=== PATIENT | female | born 1960 | race Caucasian/White ===

== ENCOUNTER → 2016-09-10 | Emergency (ER) | payer MEDICARE, MEDICAID ==
[~2016-09-10] VITALS: Wt 90.7 kg
[~2016-09-10] MED LIST: ABILIFY1 MG/ML PO; ABILIFY10 MG PO; AMBIEN5 MG PO; ANTIVERT/2525 M1 PO; B12,B-12,B 12500 MC1 PO; BACTRIM DS 8001 TA1 PO; CIPRO500 MG PO; CLONIDINE HCL0.1 MG PO; HYDROCODONE BIT1 T11 PO; KLONOPIN0.5 MG PO; LIDEX 0.05% CRE15 GM T; MACRODANTIN100 M1 PO; MOTRIN600 MG PO; PREDNISONE20 M1 PO; PROZAC40 MG PO; PYRIDIUM200 M1 PO; SEROQUEL25 MG PO; TRICOR48 MG PO; ULTRAM50 MG PO; WELLBUTRIN XL150 MG PO; ZETIA10 MG PO; ZOCOR40 MG PO; ZOCOR5 MG PO; ZOCOR80 MG PO; ZOFRAN ODT4 MG SL
== END ==
LOC: ED 11:30
DX: K59.00 Constipation, unspecified (principal); F17.200 Nicotine dependence, unspecified, uncomplicated; Z91.041 Radiographic dye allergy status

== ENCOUNTER 2016-12-03 21:42 | Emergency (ER) | payer MEDICARE, MEDICAID ==
[~2016-12-03] VITALS: Ht 167.6 cm; Wt 90.7 kg
[2016-12-03 22:50] LABS: BASO # 0.1 10*3/uL (0.0-0.1); BASO % 0.7 % (0.0-1.0); EOS # 0.1 10*3/uL (0.0-0.4); EOS % 1.3 % (1.0-4.0); HEMOGLOBIN 13.1 g/dl (12.0-16.0); LYMPH # 3.3 10*3/uL (1.3-4.4); LYMPH % 48.9 % (27.0-41.0); MEAN CELL VOLUME 86.4 fl (81.0-99.0); MEAN CORPUSCULAR HGB 28.3 pg (27.0-31.0); MEAN CORPUSCULAR HGB CONC 32.8 g/dl (33.0-37.0); MEAN PLATELET VOLUME 10.5 fl (9.6-12.3); MONO # 0.4 10*3/uL (0.1-1.0); NEUT # 2.9 10*3/uL (2.3-7.9); NEUT % 42.8 % (47.0-73.0); PLATELET COUNT AUTOMATED 228 10*3/uL (130-400); RED BLOOD COUNT 4.63 10*6/uL (4.10-5.10); RED CELL DISTRI WIDTH 12.9 % (0-14.5); WHITE BLOOD COUNT 6.8 10*3/uL (4.8-10.8)
[2016-12-03 23:00] LABS: PROTHROMBIN TIME 10.7 SECONDS (9.0-12.4)
[2016-12-03 23:10] LABS: ALBUMIN 3.5 gm/dl (3.1-4.5); ALKALINE PHOSPHATASE 82 U/L (45-117); BILIRUBIN, TOTAL 0.2 mg/dl (0.2-1.0); BUN 14 mg/dl (7-24); C-REACTIVE PROTEIN 0.44 MG/DL (0-0.3); CARBON DIOXIDE 28 mmol/L (21-32); CHLORIDE 107 mmol/L (98-107); EST GLOM FILT AFRICAN AMERICAN > 60 ml/min; GLUCOSE 102 mg/dL (65-99); MAGNESIUM 2.2 mg/dL (1.5-2.1); POTASSIUM 3.9 mmol/L (3.5-5.1); SGOT/AST 19 IU/L (3-35); SGPT/ALT 24 U/L (12-78); SODIUM 143 mmol/L (136-145); TOTAL PROTEIN 6.9 gm/dL (6.4-8.2)
[2016-12-04] MEDS ORDERED: PEPCID20 MG PO (00:40)
[2016-12-04] MEDS ORDERED: ZOFRAN ODT4 MG SL (00:40)
== END 2016-12-04 01:07 | disposition home or self-care (01) ==
LOC: ED 21:42
PROVIDERS: Emergency Medicine Emergency Medical Services
DX: K29.00 Acute gastritis without bleeding (principal); E78.5 Hyperlipidemia, unspecified; F17.200 Nicotine dependence, unspecified, uncomplicated; Z91.041 Radiographic dye allergy status; Z79.899 Other long term (current) drug therapy

== ENCOUNTER 2017-04-08 09:13 | Emergency (ER) | payer MEDICARE, MEDICAID ==
[~2017-04-08] VITALS: Ht 167.6 cm; Wt 90.7 kg
[~2017-04-08 09:13] MED LIST changes: +PEPCID20 MG PO
[2017-04-08] MEDS ORDERED: PROAIR HFA8.5 GM INH (10:46)
[2017-04-08] MEDS ORDERED: MEDROL DOSEPAK4 MG PO (10:46)
[2017-04-08] MEDS ORDERED: BROMFED DM COU118 M2 PO (10:46)
== END 2017-04-08 11:00 | disposition home or self-care (01) ==
LOC: ED 09:13
DX: J40 Bronchitis, not specified as acute or chronic (principal); F17.200 Nicotine dependence, unspecified, uncomplicated; Z98.51 Tubal ligation status; Z79.899 Other long term (current) drug therapy; Z91.041 Radiographic dye allergy status

== ENCOUNTER 2017-10-04 08:38 | Inpatient (IN) | payer MEDICARE, MEDICAID ==
[~2017-10-04] VITALS: Ht 168 cm; Wt 90.0 kg
[2017-10-04] VITALS (9 sets, daily range): BP systolic 84–109; BP diastolic 50–63
--- NOTE | ~2017-10-04 | PR ---
[place], [place] PROGRESS NOTE NAME: SHERIF JOSUE UNIT #: [id number] ROOM: 521 DOCTOR: FARZANEH BOWDEN MD BIRTHDATE: [birth year] DOS: 10/10/2017 PULMONARY PROGRESS NOTE SUBJECTIVE: She has been comfortably resting. Coughing has been improving gradually, but not completely resolved. The patient denies symptoms of chest pain or any hemoptysis. The wheezing has been improved significantly. There were no symptoms of abdominal pain. PHYSICAL EXAMINATION: VITAL SIGNS: The vital signs for the patient, which was recorded shows the temperature of the patient noted as normal, respiratory rate 20, heart rate 55-59, blood pressure 131/64-150/85. The pulse oxygen saturation on room air is 93% saturation. HEENT: Examination shows head was atraumatic. Eyes nonicterus. NECK: Supple. CARDIOVASCULAR: S1, S2 is audible. LUNGS: The patient was noted without any crackles. There was no wheezing. ABDOMEN: Soft and nontender. EXTREMITIES: Without any acute edema. LABORATORY DATA: CBC noted normal today. Culture of the sputum, the patient noted with light growth of Staph aureus, which were noted methicillin-sensitive species. Chest x-ray of the patient that was done this morning was reviewed shows improvement in the pulmonary infiltration. CT scan of the chest, which was done without contrast, the patient refused to have a prep done and count was given does not show any significant lymphadenopathy; however, the mediastinal images reviewed for the patient will be limited to lower lobe areas of infiltration with some atelectasis and interstitial changes in the right upper lobe. IMPRESSION: 1. The patient with resolving acute pneumonia, post-acute influenza pneumonia ____ Staphylococcus aureus pneumonia with methicillin-sensitive species. 2. Resolving acute exacerbation of bronchial asthma as well. PLAN OF TREATMENT: Based on the current assessment of the patient, the patient could be discharged home on oral antibiotics and bronchodilators. Tobacco cessation was addressed. Outpatient followup could be done if the patient wishes to do so. [place], [place] PROGRESS NOTE NAME: SHERIF JOSUE UNIT #: [id number] ROOM: 521 DOCTOR: FARZANEH BOWDEN MD BIRTHDATE: [birth year] FARZANEH LOGAN MD CM:PNTRANS [id number] FARZANEH KINNEY MD 10/11/17 012 interface
--- NOTE | ~2017-10-04 | CON ---
[place], [place] REPORT OF CONSULTATION NAME: SHERIF JOSUE UNIT #: [id number] ROOM: 521 DOCTOR: DESMOND KINNEY MD,FARZANEH BIRTHDATE: [birth year] DOS: 10/08/2017 The patient was noted at this time NOTE: DICTATION ENDS HERE. FARZANEH LOGAN MD CM:CONSTR:REPORT OF CONSULTATION 1255 10/09/17 0218 interface
--- NOTE | ~2017-10-04 | CON ---
[place], [place] RE[facility] OF [facility]ATION [id number] UNIT #: [id number] ROOM: 521 DOCTOR: FARZANEH BOWDEN MD BIRTHDATE: [birth year] DOS: 10/08/2017 PULMONARY CONSULTATION, EVALUATION AND MANAGEMENT CONSULTATION REQUESTED BY: Hospitalist services. REASON FOR CONSULTATION: For assessment of the current acute pneumonia and other abnormal respiratory symptoms. HISTORY OF PRESENT ILLNESS: This is a 57-year-old white female patient who came into the Emergency Room and hospitalized on 10/04/2017. She has been admitted under care of the hospitalist services since then. The patient's original symptom was described as flu-like symptoms occurring at home with nausea, vomiting and diarrhea, muscle aches. She was also reported with symptoms of fever and chills. She has been hospitalized. She has been treated for the acute pneumonia as well that was noted in chest x-ray. She has not been noted with symptoms of hemoptysis. Yesterday, the patient developed increased symptoms of shortness of breath with temperature elevation 103 degree Fahrenheit and increased wheezing. She was transferred and admitted to the Intensive Care Unit. She has been noted this morning in the Intensive Care Unit and stated reduction of respiratory symptoms. The Tylenol was given to the patient resulting in improvement in the temperature. She has been getting intravenous antibiotics as well for the coverage of acute bacterial pneumonia. REVIEW OF SYSTEMS: CONSTITUTIONAL SYMPTOMS: She was still noted with symptoms of fatigue and malaise. Denies any symptoms of chills. The patient does have fever, which has been noted 103 degree Fahrenheit. EYES: Denies any burning, redness, tenderness, discharge or dryness. EARS, NOSE AND THROAT SYMPTOMS: Denies sore throat, hoarseness, otalgia, postnasal drainage. CARDIOVASCULAR: Denies angina pain, edema, pain of the lower extremities or palpitation. GASTROINTESTINAL SYMPTOMS: Noted with symptoms of nausea, vomiting, diarrhea, all seemed to be improving progressively. GENITOURINARY SYMPTOMS: No dysuria, suprapubic pain, hematuria. MUSCULOSKELETAL SYMPTOMS: Denies any acute redness or tenderness. CENTRAL NERVOUS SYSTEM: Denies dizziness, headache, diplopia, syncopal episode, tingling sensation of the extremities. Remaining systems were reviewed. They were noted all negative. PAST MEDICAL HISTORY: Known for this patient as: 1. Chronic nicotine abuse. 2. General anxiety disorder and depression. 3. Hyperlipidemia. 4. Intervertebral disk disease. PAST SURGICAL HISTORY: Reported as tubal ligation. [place], [place] REPORT OF CONSULTATION NAME: SHERIF JOSUE UNIT #: [id number] ROOM: 521 DOCTOR: MIKE BOWDEN MDM BIRTHDATE: [birth year] SOCIAL HISTORY: The patient stated she is , has 2 children, lives at home. History of tobacco use noted since early teens a pack of cigarettes per day, actively smoked by the patient until hospitalization. Denies any history of illicit drug use. There was no exposure to chemicals, dust or other inhalation noted previously. FAMILY HISTORY: The patient's father at age 60-year-old due to complication of alcoholism with coronary artery disease. Mother was known with history of chronic alcohol dependence as well as coronary artery disease. HOME MEDICATIONS: Listed use of Abilify, Klonopin, famotidine, Prozac, Zofran, Seroquel, and simvastatin. ALLERGIES: IODINATED CONTRAST. PHYSICAL EXAMINATION: GENERAL: This is a 57-year-old female patient who has been currently noted comfortable at this time, sitting on the bed without any acute distress this morning of assessment. Height of 5 feet 6 inches, weight 199 pounds, BMI 31.8. VITAL SIGNS: The temperature noted 103.6 degree Fahrenheit, rectal temperature later noted, the patient is afebrile. Temperature on admission was noted as normal, later 101 degree Fahrenheit. The respiratory rate ranging between 18-24, heart rate ranging between 68-75. The blood pressure 101/60-125/72. Pulse oxygen saturation noted as 3 liter nasal cannula is 98% saturation and admission oxygen saturation on room air was 98% saturation. HEENT: Shows head was atraumatic. Eyes nonicterus. Mild to moderate obesity. NECK: Supple. Oral mucosa was moist. CARDIOVASCULAR: S1, S2 is audible. LUNGS: Noted with decreased breath sounds, scattered crackles in the lungs bilaterally. The expiratory wheezing noted scattered in the lungs bilaterally. ABDOMEN: Soft. Mild to moderate obesity without tenderness. Bowel sounds present. EXTREMITIES: Noted without any edema, clubbing, cyanosis. CENTRAL NERVOUS SYSTEM: Cranial nerves 2-12 intact. MUSCULOSKELETAL: Without any acute deformities. SKIN: No lesions or rashes. LABORATORY DATA: CBC noted as normal CBC for this patient on admission of of this month. of this month admission CMP; BUN normal, creatinine was normal. AST 117, ALT 104. Lactic acid was 2.2, subsequent lactic acid 1.1. CBC on ; WBC count 3.8, hemoglobin 10.8, hematocrit 33.6, platelet count normal. D-dimer on the was noted as mildly elevated 1.12. The blood culture taken in the Emergency Room on of this month showed no bacterial growth. Rapid influenza A and B, nasal washing antigens that was done yesterday was noted positive for influenza A. CMP that was done this morning; normal BUN and creatinine, glucose 157 and potassium 3.4. The liver function tests noted marked improvement. CBC this morning; WBC count 4.5, hemoglobin 10.6, hematocrit 30.4, platelet count 150,000, 89% segmented neutrophils. Review of the radiology data was performed. The patient had CT scan of the abdomen and pelvis, which was done on admission for the assessment of symptoms of nausea and [place], [place] REPORT OF CONSULTATION NAME: SHERIF JOSUE UNIT #: [id number] ROOM: 521 DOCTOR: FILIBERTO BOWDEN MDULAM BIRTHDATE: [birth year] vomiting reported and the radiologist report as finding of a small area of basilar atelectasis, no gross abdominal pelvic pathologies was described. Some irregular foci in the right lobe of the liver was described as a cyst. Nonemergent MRI of the abdomen was suggested. Chest x-ray does not show any acute abnormality, which was done on 10/06/2017, which was reviewed. The chest x-ray that was done yesterday was also reviewed shows evidence of prominent pulmonary hilar area, which was also noted on the first chest x-ray with area appear like acute infiltration developed as compared with previous chest x-ray, comparison of of this month. IMPRESSION: 1. The patient who has been currently admitted to the hospital noted with positive influenza A infection, viral syndrome with abdominal problem, currently admitted to the hospital at the present time noted with acute exacerbation of chronic obstructive pulmonary disease and bronchial asthma, which were developed in the last 24 hours with worsening of symptoms. 2. Acute pneumonia and infiltration in the left lower lobe suggested possibility of superimposed bacterial infection with a viral syndrome after influenza infection. 3. The patient with prominent pulmonary hilar area still noted in both the chest x-ray, not noted in the previous chest x-ray that has been assessed of 2017. Rule out adenopathy in the hilar area. There was no clinical suspicion of pulmonary embolism, pulmonary embolus was excluded with low probability in the V/Q scan, ultrasound of the lower extremity that was completed of of this month on this admission. 4. History of chronic nicotine dependence as well. 5. Mild hyperglycemia related to use of corticosteroids. 6. Abnormal liver function tests secondary to the acute infection. 7. Leukopenia secondary to acute viral illness. PLAN OF MANAGEMENT: At this time, the patient has been receiving the Tamiflu as well as the bronchodilators. She was started on Solu-Medrol 40 mg q.8 hours yesterday resulting in reduction in the wheezing. She has been getting broad-spectrum intravenous antibiotics as Zosyn, vancomycin and Levaquin at this time that will be monitored until the new culture results will be available. CT scan of the chest will be done intravenously after the prep to be done for this patient maybe in the next couple of days to reassess. Chest x-ray was done for the patient this morning portable view, which was pending. Continuation of bronchodilators every 4 hours. Nicotine replacement patches to overcome any nicotine withdrawal could be used as well. Urine for legionella antigen, strep antigen will be obtained. Titrate oxygen supplementation if necessary to maintain pulse ox 92% or greater. Usual care, other supportive therapy, plan of management and care plan. Additional treatment changes to be made based on the progression of the illnesses. Thanks for allowing me to participate in the care of this patient. [place], [place] REPORT OF CONSULTATION NAME: SHERIF JOSUE UNIT #: [id number] ROOM: 521 DOCTOR: FARZANEH BOWDEN MD BIRTHDATE: [birth year] FARZANEH LOGAN MD CM:CONSTR:REPORT OF CONSULTATION 1308 10/09/17 0316 interface
--- NOTE | ~2017-10-04 | PR ---
[place], [place] PROGRESS NOTE NAME: SHERIF JOSUE UNIT #: [id number] ROOM: 521 DOCTOR: DESMOND KINNEY MD,FARZANEH BIRTHDATE: [birth year] DOS: 10/09/2017 SUBJECTIVE: The patient was noted comfortable at this time, still noted with a cough, shortness of breath has been improving. There were no symptoms of hemoptysis or any chest pain. The wheezing of the patient was decreasing gradually. General weakness and fatigue was improving. The fever that occurred for the patient was also noted to a gradually normal temperature. OBJECTIVE: VITAL SIGNS: The temperature noted as normal in the last 24 hours, respiratory rate of 20-24, heart rate 56-73, blood pressure 135/66-101/60. Pulse oxygen saturation on 2 liters nasal cannula is 94% saturation. HEENT: Head was atraumatic. Eyes nonicterus. NECK: Supple. CARDIOVASCULAR: S1, S2 audible. LUNGS: Still noted with crackles in the mid to lower portion of the lungs bilaterally. ABDOMEN: Soft, nontender. It was obese. EXTREMITIES: Without any acute edema. LABORATORY DATA: The culture of the sputum preliminarily shows light growth of gram-positive cocci, pending identification and sensitivities. IMPRESSION: 1. The patient has been noted with acute pneumonia, multilobar with a superimposed bacterial infection with possibility of Staph pneumonia, Staph aureus is very likely with influenza A infection. 2. Resolving acute respiratory failure symptoms as was the temperature curve. 3. She was also noted with acute exacerbation of bronchial asthma and/or chronic obstructive pulmonary disease, currently treated with the steroids, and progressive improvement was continued. PLAN OF TREATMENT: Continue current antibiotic without any changes. Obtain a chest x-ray, PA and lateral view in the morning. Monitor the results of the sputum culture to suggest any further antibiotic and discharge planning based on the culture results of the sputum and the chest x-ray assessment. Other supportive plan of therapy of the patient to be continued as previously without any changes. Continue antibiotic therapy as well. The patient's current ongoing assessment and management were discussed with Dr. Brian Hopper in detail. [place], [place] PROGRESS NOTE NAME: SHERIF JOSUE UNIT #: [id number] ROOM: 521 DOCTOR: FARZANEH BOWDEN MD BIRTHDATE: [birth year] FARZANEH LOGAN MD CM:PNTRANS [id number] FARZANEH KINNEY MD 10/10/17 0258 interface
[~2017-10-04 08:38] MED LIST changes: +BROMFED DM COU118 M2 PO; +MEDROL DOSEPAK4 MG PO; +PROAIR HFA8.5 GM INH
[2017-10-04 08:59] LABS: BASO % 0.5 % (0.0-1.0); EOS % 0.5 % (1.0-4.0); HEMOGLOBIN 13.1 g/dl (12.0-16.0); LYMPH # 0.6 10*3/uL (1.3-4.4); LYMPH % 7.8 % (27.0-41.0); MEAN CELL VOLUME 85.1 fl (81.0-99.0); MEAN CORPUSCULAR HGB 27.9 pg (27.0-31.0); MEAN CORPUSCULAR HGB CONC 32.8 g/dl (33.0-37.0); MEAN PLATELET VOLUME 10.3 fl (9.6-12.3); MONO # 0.5 10*3/uL (0.1-1.0); MONO % 6.5 % (3.0-9.0); NEUT # 6.5 10*3/uL (2.3-7.9); NEUT % 84.4 % (47.0-73.0); PLATELET COUNT AUTOMATED 212 10*3/uL (130-400); RED CELL DISTRI WIDTH 12.9 % (0-14.5); WHITE BLOOD COUNT 7.7 10*3/uL (4.8-10.8)
[2017-10-04 09:20] LABS: ALBUMIN 3.5 gm/dl (3.1-4.5); ALKALINE PHOSPHATASE 112 U/L (45-117); BUN 7 mg/dl (7-24); CHLORIDE 104 mmol/L (98-107); CREATININE 0.98 mg/dL (0.55-1.02); LIPASE 86 U/L (73-393); POTASSIUM 3.8 mmol/L (3.5-5.1); SGOT/AST 117 IU/L (3-35); SGPT/ALT 104 U/L (12-78); SODIUM 139 mmol/L (136-145); TOTAL PROTEIN 6.5 gm/dL (6.4-8.2)
[2017-10-04] MEDS ORDERED: Zofran4 MG SL (10:07)
[2017-10-04 11:01] LABS: BILIRUBIN NEGATIVE (NEGATIVE); BLOOD 1+ (NEGATIVE); CLARITY CLEAR (CLEAR); COLOR YELLOW (YELLOW); GLUCOSE NEGATIVE (NEGATIVE); KETONE NEGATIVE (NEGATIVE); LEUKO ESTERASE NEGATIVE (NEGATIVE); NITRITE NEGATIVE (NEGATIVE); PH 6.5 (5.0-9.0); UROBILINOGEN 0.2 E.U./dl (0.2-1.0)
[2017-10-04] MEDS ORDERED: ABILIFY10 MG PO (11:23)
[2017-10-05] VITALS: BP 100/62
[2017-10-05 06:26] LABS: BASO % 0.8 % (0.0-1.0); EOS % 0.5 % (1.0-4.0); LYMPH # 1.4 10*3/uL (1.3-4.4); LYMPH % 37.5 % (27.0-41.0); MEAN CELL VOLUME 86.6 fl (81.0-99.0); MEAN CORPUSCULAR HGB 27.8 pg (27.0-31.0); MEAN CORPUSCULAR HGB CONC 32.1 g/dl (33.0-37.0); MEAN PLATELET VOLUME 10.6 fl (9.6-12.3); MONO # 0.4 10*3/uL (0.1-1.0); MONO % 10.6 % (3.0-9.0); NEUT # 1.9 10*3/uL (2.3-7.9); NEUT % 50.3 % (47.0-73.0); PLATELET COUNT AUTOMATED 175 10*3/uL (130-400); RED BLOOD COUNT 3.88 10*6/uL (4.10-5.10); RED CELL DISTRI WIDTH 13.6 % (0-14.5); WHITE BLOOD COUNT 3.8 10*3/uL (4.8-10.8)
[2017-10-05 06:28] LABS: HEMATOCRIT 33.6 % (37.0-47.0); HEMOGLOBIN 10.8 g/dl (12.0-16.0)
[2017-10-05 06:56] LABS: ALBUMIN 2.8 gm/dl (3.1-4.5); BUN 7 mg/dl (7-24); CHLORIDE 110 mmol/L (98-107); CHOLESTEROL 243 mg/dL (<200); CREATININE 0.78 mg/dL (0.55-1.02); POTASSIUM 3.9 mmol/L (3.5-5.1); SGPT/ALT 97 U/L (12-78); SODIUM 142 mmol/L (136-145); TRIGLYCERIDES 234 mg/dl (<150); VLDL CHOLESTEROL 47 mg/dL (6-40)
[2017-10-05 07:02] LABS: ALKALINE PHOSPHATASE 91 U/L (45-117); FREE T4 0.76 ng/dl (0.76-1.46); HDL CHOLESTEROL 38 mg/dl (40-60); LDL CHOLESTEROL 158 mg/dL (9-159); SGOT/AST 77 IU/L (3-35); THYROID STIM HORMONE (HS) 0.855 uIU/ml (0.358-4.75)
[2017-10-05 07:52] LABS: VITAMIN D, 25-HYDROXY 16.4 ng/mL (30-100)
[2017-10-05 08:00] VITALS: BP 110/60
[2017-10-05 12:00] VITALS: BP 90/51
[2017-10-05 16:00] VITALS: BP 95/60
[2017-10-05 20:00] VITALS: BP 101/62
[2017-10-06] VITALS: BP 99/48
[2017-10-06 06:01] LABS: BUN 9 mg/dl (7-24); CHLORIDE 108 mmol/L (98-107); CREATININE 0.75 mg/dL (0.55-1.02); POTASSIUM 3.8 mmol/L (3.5-5.1); SODIUM 142 mmol/L (136-145)
[2017-10-06 06:28] LABS: BASO % 0.2 % (0.0-1.0); EOS % 0.2 % (1.0-4.0); HEMATOCRIT 33.3 % (37.0-47.0); HEMOGLOBIN 10.5 g/dl (12.0-16.0); LYMPH # 1.1 10*3/uL (1.3-4.4); LYMPH % 24.1 % (27.0-41.0); MEAN CELL VOLUME 88.6 fl (81.0-99.0); MEAN CORPUSCULAR HGB 27.9 pg (27.0-31.0); MEAN CORPUSCULAR HGB CONC 31.5 g/dl (33.0-37.0); MEAN PLATELET VOLUME 10.9 fl (9.6-12.3); MONO # 0.4 10*3/uL (0.1-1.0); NEUT # 2.9 10*3/uL (2.3-7.9); NEUT % 66.3 % (47.0-73.0); PLATELET COUNT AUTOMATED 162 10*3/uL (130-400); RED BLOOD COUNT 3.76 10*6/uL (4.10-5.10); RED CELL DISTRI WIDTH 13.8 % (0-14.5); WHITE BLOOD COUNT 4.4 10*3/uL (4.8-10.8)
[2017-10-06 08:00] VITALS: BP 74/50; BP 78/30
[2017-10-06 10:20] VITALS: BP 84/60
[2017-10-06 12:00] VITALS: BP 96/57
[2017-10-06 16:00] VITALS: BP 101/61
[2017-10-06 20:00] VITALS: BP 102/62
[2017-10-07] VITALS: BP 111/57
[2017-10-07 08:00] VITALS: BP 121/58
[2017-10-07 12:00] VITALS: BP 131/75
[2017-10-07 16:00] VITALS: BP 118/59
[2017-10-07 20:00] VITALS: BP 101/58
[2017-10-08] VITALS: BP 125/72
[2017-10-08 04:01] VITALS: BP 137/83
[2017-10-08 05:11] LABS: ALBUMIN 2.9 gm/dl (3.1-4.5); ALKALINE PHOSPHATASE 108 U/L (45-117); BUN 7 mg/dl (7-24); CHLORIDE 107 mmol/L (98-107); PHOSPHOROUS 3.5 mg/dL (2.5-4.9); POTASSIUM 3.4 mmol/L (3.5-5.1); SGOT/AST 36 IU/L (3-35); SGPT/ALT 61 U/L (12-78); SODIUM 143 mmol/L (136-145); TOTAL PROTEIN 6.6 gm/dL (6.4-8.2)
[2017-10-08 05:53] LABS: HEMATOCRIT 33.4 % (37.0-47.0); HEMOGLOBIN 10.6 g/dl (12.0-16.0); MEAN CELL VOLUME 87.7 fl (81.0-99.0); MEAN CORPUSCULAR HGB 27.8 pg (27.0-31.0); MEAN CORPUSCULAR HGB CONC 31.7 g/dl (33.0-37.0); MEAN PLATELET VOLUME 11.4 fl (9.6-12.3); PLATELET COUNT AUTOMATED 150 10*3/uL (130-400); RED BLOOD COUNT 3.81 10*6/uL (4.10-5.10); RED CELL DISTRI WIDTH 13.9 % (0-14.5); WHITE BLOOD COUNT 4.5 10*3/uL (4.8-10.8)
[2017-10-08 06:50] LABS: PLATELET SUFFICIENCY NORMAL (NORMAL); TOTAL CELLS COUNTED 100 #CELLS
[2017-10-08 08:00] VITALS: BP 117/59
[2017-10-08 12:00] VITALS: BP 101/60
[2017-10-08 16:00] VITALS: BP 104/54
[2017-10-08 20:04] VITALS: BP 126/54
[2017-10-09] VITALS: BP 135/66
[2017-10-09 12:00] VITALS: BP 107/58
[2017-10-09 16:00] VITALS: BP 134/76
[2017-10-09 20:00] VITALS: BP 132/73
[2017-10-10] VITALS: BP 150/85
[2017-10-10 07:16] LABS: HEMOGLOBIN 11.6 g/dl (12.0-16.0); MEAN CELL VOLUME 87.7 fl (81.0-99.0); MEAN CORPUSCULAR HGB 27.5 pg (27.0-31.0); MEAN CORPUSCULAR HGB CONC 31.4 g/dl (33.0-37.0); MEAN PLATELET VOLUME 11.2 fl (9.6-12.3); PLATELET COUNT AUTOMATED 207 10*3/uL (130-400); RED BLOOD COUNT 4.22 10*6/uL (4.10-5.10); RED CELL DISTRI WIDTH 13.9 % (0-14.5); WHITE BLOOD COUNT 7.1 10*3/uL (4.8-10.8)
[2017-10-10 07:24] LABS: BUN 8 mg/dl (7-24); CHLORIDE 106 mmol/L (98-107); CREATININE 0.69 mg/dL (0.55-1.02); POTASSIUM 3.7 mmol/L (3.5-5.1); SODIUM 143 mmol/L (136-145)
[2017-10-10 08:00] VITALS: BP 131/64
[2017-10-10 08:14] LABS: PLATELET SUFFICIENCY NORMAL (NORMAL); TOTAL CELLS COUNTED 100 #CELLS
[2017-10-10] MEDS ORDERED: PREDNISONE10 MG PO (10:51)
[2017-10-10] MEDS ORDERED: TAMIFLU 75MG CA75 MG PO (10:51)
[2017-10-10] MEDS ORDERED: DOXYCYCLINE100 M3 PO (10:51)
== END 2017-10-10 11:36 | disposition home or self-care (01) | DRG 871 ==
LOC: ED 08:38 → 5E 10:25 → EDHOLD 10:25 → ICCU 10:25 → 5E 10:35 → ICCU 10-07 14:16 → 5E 10-08 21:31
PROVIDERS: Internal Medicine; Student in an Organized Health Care Education/Training Program
DX: A41.9 Sepsis, unspecified organism (principal); J96.01 Acute respiratory failure with hypoxia; J15.211 Pneumonia due to Methicillin susceptible Staphylococcus aureus; I95.9 Hypotension, unspecified; J18.1 Lobar pneumonia, unspecified organism; E87.8 Other disorders of electrolyte and fluid balance, not elsewhere classified; E44.0 Moderate protein-calorie malnutrition; F19.951 Other psychoactive substance use, unspecified with psychoactive substance-induced psychotic disorder with hallucinations; J44.0 Chronic obstructive pulmonary disease with (acute) lower respiratory infection; J45.901 Unspecified asthma with (acute) exacerbation; Z68.32 Body mass index [BMI] 32.0-32.9, adult; R73.9 Hyperglycemia, unspecified; K52.9 Noninfective gastroenteritis and colitis, unspecified; T38.0X5A Adverse effect of glucocorticoids and synthetic analogues, initial encounter; E86.0 Dehydration; E66.09 Other obesity due to excess calories; F17.200 Nicotine dependence, unspecified, uncomplicated; K21.9 Gastro-esophageal reflux disease without esophagitis; F32.9 Major depressive disorder, single episode, unspecified; F41.0 Panic disorder [episodic paroxysmal anxiety]; J10.1 Influenza due to other identified influenza virus with other respiratory manifestations; B34.9 Viral infection, unspecified; E78.2 Mixed hyperlipidemia; E78.1 Pure hyperglyceridemia; D64.9 Anemia, unspecified; F11.10 Opioid abuse, uncomplicated; F13.10 Sedative, hypnotic or anxiolytic abuse, uncomplicated; Z91.041 Radiographic dye allergy status; Z98.51 Tubal ligation status; Z82.49 Family history of ischemic heart disease and other diseases of the circulatory system; Z81.1 Family history of alcohol abuse and dependence; Z79.899 Other long term (current) drug therapy; Y92.89 Other specified places as the place of occurrence of the external cause

== ENCOUNTER → 2018-09-14 | Outpatient (CLI) | payer MEDICARE, MEDICAID ==
[~2018-09-14] MED LIST changes: +CLARITIN10 MG PO; +DOXYCYCLINE100 M3 PO; +FLONASE ALLERG9.9 ML NAS; +PREDNISONE10 MG PO; +SEPTDS PO; +TAMIFLU 75MG CA75 MG PO; +Zofran4 MG SL
[2018-09-14 12:11] LABS: BASO % 0.7 % (0.0-1.0); EOS # 0.1 10*3/uL (0.0-0.4); EOS % 1.4 % (1.0-4.0); HEMOGLOBIN 13.6 g/dl (12.0-16.0); LYMPH # 2.3 10*3/uL (1.3-4.4); LYMPH % 39.9 % (27.0-41.0); MEAN CELL VOLUME 89.2 fl (81.0-99.0); MEAN CORPUSCULAR HGB 28.2 pg (27.0-31.0); MEAN CORPUSCULAR HGB CONC 31.6 g/dl (33.0-37.0); MONO # 0.3 10*3/uL (0.1-1.0); MONO % 4.5 % (3.0-9.0); NEUT # 3.1 10*3/uL (2.3-7.9); NEUT % 53.3 % (47.0-73.0); PLATELET COUNT AUTOMATED 256 10*3/uL (130-400); RED BLOOD COUNT 4.82 10*6/uL (4.10-5.10); RED CELL DISTRI WIDTH 13.2 % (0-14.5); WHITE BLOOD COUNT 5.8 10*3/uL (4.8-10.8)
[2018-09-14 12:30] LABS: BILIRUBIN NEGATIVE (NEGATIVE); BLOOD 1+ (NEGATIVE); CLARITY CLEAR (CLEAR); COLOR YELLOW (YELLOW); GLUCOSE NEGATIVE (NEGATIVE); KETONE NEGATIVE (NEGATIVE); LEUKO ESTERASE NEGATIVE (NEGATIVE); NITRITE NEGATIVE (NEGATIVE); SPECIFIC GRAVITY <= 1.005 (1.005-1.030); UROBILINOGEN 0.2 E.U./dl (0.2-1.0)
[2018-09-14 12:35] LABS: ALBUMIN 3.5 gm/dl (3.1-4.5); BUN 9 mg/dl (7-24); CHLORIDE 104 mmol/L (98-107); SGOT/AST 38 IU/L (3-35); SGPT/ALT 81 U/L (12-78); SODIUM 139 mmol/L (136-145)
[2018-09-14 12:37] LABS: ALKALINE PHOSPHATASE 111 U/L (45-117); CREATININE 0.84 mg/dL (0.55-1.02); TOTAL PROTEIN 7.6 gm/dL (6.4-8.2)
[2018-09-14 13:09] LABS: BACTERIA TRACE
== END | disposition home or self-care (01) ==
LOC: LAB 11:39
PROVIDERS: Urology
DX: Z01.812 Encounter for preprocedural laboratory examination (principal); R31.9 Hematuria, unspecified

== ENCOUNTER 2019-08-17 08:01 | Emergency (ER) | payer MEDICARE, MEDICAID ==
[~2019-08-17] VITALS: Ht 167.6 cm; Wt 81.6 kg
[2019-08-17 09:20] LABS: BILIRUBIN NEGATIVE (NEGATIVE); BLOOD 3+ (NEGATIVE); CLARITY CLOUDY (CLEAR); COLOR YELLOW (YELLOW); GLUCOSE NEGATIVE (NEGATIVE); KETONE NEGATIVE (NEGATIVE); LEUKO ESTERASE 3+ (NEGATIVE); NITRITE NEGATIVE (NEGATIVE); RBC 31-40 rbc/hpf (0-2); UROBILINOGEN 0.2 E.U./dl (0.2-1.0); WBC TNTC wbc/hpf (0-5)
[2019-08-17 09:21] LABS: BACTERIA 3+
[2019-08-17] MEDS ORDERED: PYRIDIUM200 M1 PO (09:28)
[2019-08-17] MEDS ORDERED: CEFUROXIME AXE500 MG PO (09:28)
== END 2019-08-17 09:44 | disposition home or self-care (01) ==
LOC: ED 08:01
PROVIDERS: Family Medicine
DX: N39.0 Urinary tract infection, site not specified (principal); F41.9 Anxiety disorder, unspecified; F32.9 Major depressive disorder, single episode, unspecified; K21.9 Gastro-esophageal reflux disease without esophagitis; E78.5 Hyperlipidemia, unspecified; E78.00 Pure hypercholesterolemia, unspecified; F17.200 Nicotine dependence, unspecified, uncomplicated; Z91.041 Radiographic dye allergy status; Z88.8 Allergy status to other drugs, medicaments and biological substances; Z79.899 Other long term (current) drug therapy; Z79.2 Long term (current) use of antibiotics

== ENCOUNTER 2020-02-10 23:30 | Emergency (ER) | payer OTHER, MEDICAID ==
[~2020-02-10] VITALS: Ht 167.6 cm; Wt 80.7 kg
[~2020-02-10 23:30] MED LIST changes: +CEFUROXIME AXE500 MG PO
[2020-02-11 01:04] LABS: BASO % 0.6 % (0.0-1.0); EOS # 0.1 10*3/uL (0.0-0.4); LYMPH # 3.3 10*3/uL (1.3-4.4); LYMPH % 47.9 % (27.0-41.0); MEAN CELL VOLUME 87.7 fl (81.0-99.0); MEAN CORPUSCULAR HGB 27.8 pg (27.0-31.0); MEAN CORPUSCULAR HGB CONC 31.7 g/dl (33.0-37.0); MEAN PLATELET VOLUME 10.8 fl (9.6-12.3); MONO # 0.4 10*3/uL (0.1-1.0); MONO % 5.7 % (3.0-9.0); NEUT # 3.1 10*3/uL (2.3-7.9); NEUT % 44.7 % (47.0-73.0); PLATELET COUNT AUTOMATED 222 10*3/uL (130-400); RED BLOOD COUNT 4.79 10*6/uL (4.10-5.10); RED CELL DISTRI WIDTH 12.6 % (0-14.5); WHITE BLOOD COUNT 6.9 10*3/uL (4.8-10.8)
[2020-02-11 01:19] LABS: BUN 13 mg/dl (7-24); CHLORIDE 111 mmol/L (98-107); CREATININE 0.82 mg/dL (0.55-1.02); POTASSIUM 3.8 mmol/L (3.5-5.1); SODIUM 143 mmol/L (136-145)
== END 2020-02-11 02:47 | disposition home or self-care (01) ==
LOC: ED 23:30
PROVIDERS: Internal Medicine
DX: G25.3 Myoclonus (principal); T43.225A Adverse effect of selective serotonin reuptake inhibitors, initial encounter; F17.200 Nicotine dependence, unspecified, uncomplicated; Z91.041 Radiographic dye allergy status; Z88.8 Allergy status to other drugs, medicaments and biological substances; Z79.899 Other long term (current) drug therapy; Y92.89 Other specified places as the place of occurrence of the external cause

== ENCOUNTER 2020-08-17 15:27 | Emergency (ER) | payer OTHER, MEDICAID ==
[~2020-08-17] VITALS: Ht 167.6 cm; Wt 81.6 kg
[2020-08-17 16:55] LABS: BASO # 0.1 10*3/uL (0.0-0.1); BASO % 0.7 % (0.0-1.0); EOS # 0.1 10*3/uL (0.0-0.4); EOS % 1.1 % (1.0-4.0); HEMATOCRIT 44.2 % (37.0-47.0); LYMPH # 2.9 10*3/uL (1.3-4.4); LYMPH % 41.2 % (27.0-41.0); MEAN CELL VOLUME 91.3 fl (81.0-99.0); MEAN CORPUSCULAR HGB 29.5 pg (27.0-31.0); MEAN CORPUSCULAR HGB CONC 32.4 g/dl (33.0-37.0); MONO # 0.5 10*3/uL (0.1-1.0); MONO % 6.3 % (3.0-9.0); NEUT # 3.6 10*3/uL (2.3-7.9); NEUT % 50.4 % (47.0-73.0); PLATELET COUNT AUTOMATED 262 10*3/uL (130-400); RED BLOOD COUNT 4.84 10*6/uL (4.10-5.10); RED CELL DISTRI WIDTH 12.6 % (0-14.5); WHITE BLOOD COUNT 7.1 10*3/uL (4.8-10.8)
[2020-08-17 17:14] LABS: ALBUMIN 3.7 gm/dl (3.1-4.5); ALKALINE PHOSPHATASE 90 U/L (45-117); BUN 11 mg/dl (7-24); CHLORIDE 107 mmol/L (98-107); LIPASE 114 U/L (73-393); SGOT/AST 17 IU/L (3-35); SGPT/ALT 31 U/L (12-78); SODIUM 143 mmol/L (136-145); TOTAL PROTEIN 7.5 gm/dL (6.4-8.2)
[2020-08-17] MEDS ORDERED: PRILOSEC20 M1 PO ×2 (18:00)
[2020-08-17] MEDS ORDERED: ZOFRAN4 MG PO ×2 (18:00)
== END 2020-08-17 19:16 | disposition home or self-care (01) ==
LOC: ED 15:27
PROVIDERS: Emergency Medicine
DX: R10.13 Epigastric pain (principal); R11.2 Nausea with vomiting, unspecified; F41.9 Anxiety disorder, unspecified; F32.9 Major depressive disorder, single episode, unspecified; K21.9 Gastro-esophageal reflux disease without esophagitis; E78.5 Hyperlipidemia, unspecified; I10 Essential (primary) hypertension; E78.00 Pure hypercholesterolemia, unspecified; Z91.041 Radiographic dye allergy status; Z79.899 Other long term (current) drug therapy; Z88.8 Allergy status to other drugs, medicaments and biological substances; Z98.51 Tubal ligation status

== ENCOUNTER 2020-09-18 16:00 | Observation (INO) | payer OTHER, MEDICAID ==
[~2020-09-18] VITALS: Ht 167.6 cm; Wt 82.2 kg
[~2020-09-18 16:00] MED LIST changes: +PRILOSEC20 M1 PO; +ZOFRAN4 MG PO
[2020-09-18 16:12] VITALS: BP 141/75
[2020-09-18 16:48] VITALS: BP 113/72
[2020-09-18 16:48] LABS: BASO % 0.7 % (0.0-1.0); EOS # 0.1 10*3/uL (0.0-0.4); EOS % 1.5 % (1.0-4.0); HEMATOCRIT 45.4 % (37.0-47.0); LYMPH # 2.5 10*3/uL (1.3-4.4); LYMPH % 40.3 % (27.0-41.0); MEAN CELL VOLUME 91.9 fl (81.0-99.0); MEAN CORPUSCULAR HGB 28.7 pg (27.0-31.0); MEAN CORPUSCULAR HGB CONC 31.3 g/dl (33.0-37.0); MEAN PLATELET VOLUME 10.3 fl (9.6-12.3); MONO # 0.4 10*3/uL (0.1-1.0); MONO % 7.2 % (3.0-9.0); NEUT # 3.1 10*3/uL (2.3-7.9); NEUT % 50.1 % (47.0-73.0); PLATELET COUNT AUTOMATED 289 10*3/uL (130-400); RED BLOOD COUNT 4.94 10*6/uL (4.10-5.10); RED CELL DISTRI WIDTH 12.9 % (0-14.5); WHITE BLOOD COUNT 6.1 10*3/uL (4.8-10.8)
[2020-09-18 17:03] LABS: ACT PARTIAL THROMBO TIME 28.7 SECONDS (20.0-32.1)
[2020-09-18 17:05] LABS: ALBUMIN 3.7 gm/dl (3.1-4.5); ALKALINE PHOSPHATASE 90 U/L (45-117); BUN 8 mg/dl (7-24); CHLORIDE 108 mmol/L (98-107); CREATININE 0.83 mg/dL (0.55-1.02); POTASSIUM 3.9 mmol/L (3.5-5.1); SGOT/AST 9 IU/L (3-35); SGPT/ALT 27 U/L (12-78); SODIUM 138 mmol/L (136-145); TOTAL PROTEIN 8.1 gm/dL (6.4-8.2); TROPONIN I < 0.015 ng/ml (<0.045)
[2020-09-18 18:10] VITALS: BP 116/81
[2020-09-18 20:32] VITALS: BP 107/72
[2020-09-18 21:15] VITALS: BP 99/65
[2020-09-19] VITALS: BP 99/50
[2020-09-19] MEDS ORDERED: OMEPRAZOLE MAGN20 MG PO (00:45)
[2020-09-19] MEDS ORDERED: SIMVASTATIN20 MG PO (00:45)
[2020-09-19] MEDS ORDERED: PROZAC20 MG PO (00:46)
[2020-09-19] MEDS ORDERED: CLONAZEPAM0.5 M2 PO (00:46)
[2020-09-19] MEDS ORDERED: ABILIFY2 MG PO (00:47)
[2020-09-19 06:33] LABS: BASO # 0.1 10*3/uL (0.0-0.1); BASO % 0.8 % (0.0-1.0); EOS # 0.1 10*3/uL (0.0-0.4); EOS % 1.4 % (1.0-4.0); HEMATOCRIT 44.9 % (37.0-47.0); LYMPH % 47.2 % (27.0-41.0); MEAN CELL VOLUME 92.6 fl (81.0-99.0); MEAN CORPUSCULAR HGB 29.1 pg (27.0-31.0); MEAN CORPUSCULAR HGB CONC 31.4 g/dl (33.0-37.0); MEAN PLATELET VOLUME 10.5 fl (9.6-12.3); MONO # 0.4 10*3/uL (0.1-1.0); MONO % 6.2 % (3.0-9.0); NEUT # 2.8 10*3/uL (2.3-7.9); NEUT % 44.2 % (47.0-73.0); PLATELET COUNT AUTOMATED 290 10*3/uL (130-400); RED BLOOD COUNT 4.85 10*6/uL (4.10-5.10); RED CELL DISTRI WIDTH 12.8 % (0-14.5); WHITE BLOOD COUNT 6.3 10*3/uL (4.8-10.8)
[2020-09-19 07:06] LABS: ALBUMIN 3.5 gm/dl (3.1-4.5); ALKALINE PHOSPHATASE 84 U/L (45-117); BUN 11 mg/dl (7-24); CHLORIDE 107 mmol/L (98-107); CREATININE 0.79 mg/dL (0.55-1.02); FREE T4 0.89 ng/dl (0.76-1.46); POTASSIUM 3.7 mmol/L (3.5-5.1); SGOT/AST 11 IU/L (3-35); SGPT/ALT 23 U/L (12-78); SODIUM 142 mmol/L (136-145); TOTAL PROTEIN 7.5 gm/dL (6.4-8.2)
[2020-09-19 08:00] VITALS: BP 92/44
[2020-09-19 10:00] VITALS: BP 162/58
[2020-09-19 12:00] VITALS: BP 95/46
[2020-09-19 16:00] VITALS: BP 104/72
== END 2020-09-19 18:59 | disposition home or self-care (01) ==
LOC: ED 16:00 → 5E 18:22 → EDHOLD 18:22 → 5E 20:05
PROVIDERS: Emergency Medicine; Internal Medicine; ADMIT Internal Medicine; ATTEND Internal Medicine
DX: R07.89 Other chest pain (principal); R11.0 Nausea; E87.8 Other disorders of electrolyte and fluid balance, not elsewhere classified; E83.41 Hypermagnesemia; R79.82 Elevated C-reactive protein (CRP); F41.9 Anxiety disorder, unspecified; F32.9 Major depressive disorder, single episode, unspecified; F41.0 Panic disorder [episodic paroxysmal anxiety]; K21.9 Gastro-esophageal reflux disease without esophagitis; E53.8 Deficiency of other specified B group vitamins; E55.9 Vitamin D deficiency, unspecified; N32.89 Other specified disorders of bladder; I25.10 Atherosclerotic heart disease of native coronary artery without angina pectoris; E78.1 Pure hyperglyceridemia; F17.200 Nicotine dependence, unspecified, uncomplicated; Z79.899 Other long term (current) drug therapy

== ENCOUNTER → 2020-09-27 | Outpatient (CLI) | payer OTHER, MEDICAID ==
[~2020-09-27] MED LIST changes: +ABILIFY2 MG PO; +CLONAZEPAM0.5 M2 PO; +OMEPRAZOLE MAGN20 MG PO; +PROZAC20 MG PO; +SIMVASTATIN20 MG PO
== END | disposition home or self-care (01) ==
LOC: RAD 16:29
PROVIDERS: ATTEND Internal Medicine Gastroenterology
DX: R10.9 Unspecified abdominal pain (principal)

== ENCOUNTER 2020-11-29 18:39 | Emergency (ER) | payer OTHER, MEDICAID ==
[~2020-11-29] VITALS: Ht 167.6 cm; Wt 81.6 kg
[2020-11-29 20:12] LABS: BASO # 0.1 10*3/uL (0.0-0.1); BASO % 0.7 % (0.0-1.0); EOS # 0.1 10*3/uL (0.0-0.4); EOS % 1.1 % (1.0-4.0); HEMATOCRIT 42.1 % (37.0-47.0); LYMPH # 2.6 10*3/uL (1.3-4.4); LYMPH % 28.8 % (27.0-41.0); MEAN CELL VOLUME 90.1 fl (81.0-99.0); MEAN CORPUSCULAR HGB 28.9 pg (27.0-31.0); MEAN CORPUSCULAR HGB CONC 32.1 g/dl (33.0-37.0); MEAN PLATELET VOLUME 9.9 fl (9.6-12.3); MONO # 0.6 10*3/uL (0.1-1.0); MONO % 6.5 % (3.0-9.0); NEUT # 5.7 10*3/uL (2.3-7.9); NEUT % 62.7 % (47.0-73.0); PLATELET COUNT AUTOMATED 260 10*3/uL (130-400); RED BLOOD COUNT 4.67 10*6/uL (4.10-5.10); WHITE BLOOD COUNT 9.1 10*3/uL (4.8-10.8)
[2020-11-29 20:49] LABS: ALBUMIN 3.2 gm/dl (3.1-4.5); ALKALINE PHOSPHATASE 82 U/L (45-117); BUN 9 mg/dl (7-24); CHLORIDE 106 mmol/L (98-107); CREATININE 0.86 mg/dL (0.55-1.02); LIPASE 78 U/L (73-393); POTASSIUM 3.5 mmol/L (3.5-5.1); SGOT/AST 11 IU/L (3-35); SGPT/ALT 20 U/L (12-78); SODIUM 137 mmol/L (136-145); TOTAL PROTEIN 7.5 gm/dL (6.4-8.2)
== END 2020-11-29 23:44 | disposition home or self-care (01) ==
LOC: ED 18:39
PROVIDERS: Internal Medicine
DX: K44.9 Diaphragmatic hernia without obstruction or gangrene (principal); K20.90 Esophagitis, unspecified without bleeding; Z88.8 Allergy status to other drugs, medicaments and biological substances; Z79.899 Other long term (current) drug therapy; Z95.818 Presence of other cardiac implants and grafts; Z98.51 Tubal ligation status

== ENCOUNTER 2021-02-14 17:02 | Emergency (ER) | payer OTHER, MEDICAID ==
[~2021-02-14] VITALS: Wt 90.7 kg
== END 2021-02-14 20:52 | disposition home or self-care (01) ==
LOC: ED 17:02
DX: S39.012A Strain of muscle, fascia and tendon of lower back, initial encounter (principal); S09.90XA Unspecified injury of head, initial encounter; Z88.8 Allergy status to other drugs, medicaments and biological substances; Z79.899 Other long term (current) drug therapy; V29.9XXA Motorcycle rider (driver) (passenger) injured in unspecified traffic accident, initial encounter; Y93.89 Activity, other specified; Y92.89 Other specified places as the place of occurrence of the external cause; Y99.8 Other external cause status

== ENCOUNTER → 2021-03-06 | Outpatient (CLI) | payer OTHER, MEDICAID | END | disposition home or self-care (01) | LOC: COVID19 18:25 | PROVIDERS: ATTEND Internal Medicine | DX: U07.1 COVID-19 (principal) ==

== ENCOUNTER 2021-03-11 18:44 | Emergency (ER) | payer OTHER, MEDICAID ==
[~2021-03-11] VITALS: Wt 90.7 kg
== END 2021-03-11 21:50 | disposition left against medical advice (07) ==
LOC: ED 18:44
DX: R50.9 Fever, unspecified (principal); R11.10 Vomiting, unspecified; Z53.21 Procedure and treatment not carried out due to patient leaving prior to being seen by health care provider